=== PATIENT | female | born 1965 | race Caucasian/White ===

== ENCOUNTER 2017-09-29 07:00 | Emergency (ER) | payer OTHER | END 2017-09-29 07:20 | disposition home or self-care (01) | LOC: ERS 07:00 | DX: H00.034 Abscess of left upper eyelid (principal); Z85.3 Personal history of malignant neoplasm of breast | CPT/HCPCS: 99283 ==

== ENCOUNTER 2018-06-18 20:44 | Emergency (ER) | payer BC, OTHER ==
[2018-06-18] MEDS ORDERED: Diazepam 5 MG TAB ONE (22:24)
[2018-06-18] MEDS ORDERED: predniSONE 20 MG TAB ONE (22:24)
[2018-06-18] MEDS ORDERED: Ketorolac Tromethamine 30 MG/ML VIAL ONE (22:24)
--- NOTE | 2018-06-18 22:44 | CT ---
CT LUMBAR SPINE WITHOUT CONTRAST: 06/18/18 Multiple axial tomograms obtained through the lumbar spine with multiplanar reconstruction. INDICATION: Low back pain. The lumbar vertebrae maintain normal height and alignment. There is no evidence of spondylolisthesis of spondylolysis. Disc spaces are preserved. Mild disc bulge at L2-3, L3-4, and L4-5. No evidence of disc protrusion or herniation. No significant central canal stenosis. IMPRESSION: Mild disc bulges are seen as noted above. No evidence of disc protrusion or herniation and no signifi cant central canal stenosis apparent. POS: KENNETH
== END 2018-06-18 23:00 | disposition home or self-care (01) ==
LOC: SCSER 20:44
DX: S33.5XXA Sprain of ligaments of lumbar spine, initial encounter (principal); Z85.3 Personal history of malignant neoplasm of breast; X50.1XXA Overexertion from prolonged static or awkward postures, initial encounter; Y99.0 Civilian activity done for income or pay
CPT/HCPCS: 72131; 96372; J1885

== ENCOUNTER 2019-07-21 09:57 | Outpatient (CLI) | payer OTHER ==
--- NOTE | 2019-07-21 12:16 | ULT ---
THYROID ULTRASOUND: INDICATION: Thyroid nodule. COMPARISON: There are no comparison exams. History given of a prior exam performed at [facility]. The patient has a history of breast cancer and has been exposed to radiation. FINDINGS: Both lobes give a homogeneous background echotexture. The right lobe measures 5.2 x 1.7 x 2.0 cm. The left lobe measures 5.1 x 1.7 x 1.9 cm. Right Lobe: A dominant nodule in the superior right lobe has an oblong shape measuring 1.3 x 0.7 x 0.7 cm. This nodule appears solid and is hypoechoic with slightly irregular margins. In the lower pole right lobe there is a 0.7 cm nodule. There are 2 nodules in the mid pole right lob e measuring 0.3 to 0.5 cm. Left Lobe: There are at least 5 small hypoechoic nodules in the left lobe all measuring in the 3-6 mm range. IMPRESSION: There are multiple bilateral thyroid lobe nodules as described above. The largest nodule is in the s uperior right lobe. This is a TIRADS 4 lesion. Comparison with old exams would be of benefit to dete rmine if this is a stable nodule. If the prior films are unavailable, options include ultrasound-bi ded fine needle aspirate or short-term followup with repeat exam in 6 months. Since this lesion is l ess than 1.5 cm, TIRADS recommendations are 6-month followup exam. POS: SABA
== END 2019-07-21 09:58 | disposition home or self-care (01) ==
LOC: SCSULT 09:57
PROVIDERS: ATTEND Family Medicine
DX: E04.2 Nontoxic multinodular goiter (principal)
CPT/HCPCS: 76536

== ENCOUNTER 2019-07-30 08:35 | Day surgery (SDC) | payer OTHER ==
[2019-07-29 10:55] VITALS: BMI 28.8
[2019-07-30] MEDS ORDERED: Sodium Bicarbonate 2.5 MEQ/5 ML VIAL ONE (08:43)
[2019-07-30] MEDS ORDERED: Lidocaine 1% PF 5 ML VIAL ONE (08:43)
[2019-07-30 09:41] VITALS: BP 129/72; TEMP 98.1
--- NOTE | 2019-07-31 07:11 | ULT ---
Sonographic guided FNA right thyroid lobe nodule. HISTORY: Right thyroid lobe mass. FINDINGS: After explaining the procedure and answering all questions, the lobular hypoechoic mass at the posterolateral aspect of the right thyroid lobe as visualized. Sterile technique, buffered local anesthesia, sonographic guidance, and a medial approach were used to carefully advance a 25-gau ge needle into the right thyroid lobe mass. A total of 4 FNA passes were made. Tissue was submitted to laboratory for analysis and processing. Postprocedure imaging shows no evidence of complication. Patient tolerated the procedure well and was dismissed in good condition. IMPRESSION : Technically successful sonographic guided right thyroid lobe nodule FNA. Pathology is pending.
== END 2019-07-30 09:35 | disposition home or self-care (01) ==
LOC: ULT 08:35
PROVIDERS: ATTEND Specialist
PROC: 0GBH3ZX Excision of Right Thyroid Gland Lobe, Percutaneous Approach, Diagnostic (ICD-10-PCS; principal; 2019-07-30)
PROC: BG44ZZZ Ultrasonography of Thyroid Gland (ICD-10-PCS; principal; 2019-07-30)
DX: E04.1 Nontoxic single thyroid nodule (principal); J45.909 Unspecified asthma, uncomplicated; R13.10 Dysphagia, unspecified; R53.83 Other fatigue; L65.9 Nonscarring hair loss, unspecified; Z88.0 Allergy status to penicillin; Z79.899 Other long term (current) drug therapy; Z85.3 Personal history of malignant neoplasm of breast
CPT/HCPCS: 60100; 76942; 88173; J2001

== ENCOUNTER 2019-11-17 10:03 | Outpatient (CLI) | payer OTHER ==
--- NOTE | 2019-11-17 11:29 | ULT ---
GALLBLADDER ULTRASOUND: HISTORY: Nausea, vomiting, mid epigastric pain, breast cancer in 2012. FINDINGS: The liver demonstrates mildly increased echogenicity without focal mass or intrahepatic ductal dilata tion. The probable hemangiomas noted on the CT scan of 10/28/2019 and not seen on this study. No intr ahepatic ductal dilatation is seen. The gallbladder, right kidney, and visualized portions of the pa ncreas are unremarkable. No free fluid is seen. The common duct measures 3 mm in diameter. IMPRESSION: Mild fatty infiltration of the liver. POS: OFF
== END 2019-11-17 10:04 | disposition home or self-care (01) ==
LOC: SCSULT 10:03
PROVIDERS: ATTEND Internal Medicine Gastroenterology
DX: R11.2 Nausea with vomiting, unspecified (principal); R10.13 Epigastric pain; R07.9 Chest pain, unspecified; K76.0 Fatty (change of) liver, not elsewhere classified
CPT/HCPCS: 76705